=== PATIENT | male | born 1970 | race Caucasian/White ===

== ENCOUNTER 2019-07-11 23:21 | Emergency (ER) | payer MEDICARE, MEDICAID ==
[~2019-07-11] VITALS: Ht 172.7 cm; Wt 52.0 kg
[~2019-07-11 23:21] MED LIST: AMIODARONE HCL 50MG/ML 3ML VIAL IV ONE; CALCIUM CHLORIDE 1GM/10ML SYR IV ONE; EPINEPHRINE 0.1MG/ML (1:10,000) 10ML SYR ONE; ETOMIDATE 2MG/ML 10ML VIAL IV ONE; SODIUM BICARBONATE 8.4% MEQ/ML 50ML VIAL IV ONE; SUCCINYLCHOLINE CHLORIDE 200MG/10ML IV ONE
[2019-07-11] MEDS ORDERED: EPINEPHRINE 0.1MG/ML (1:10,000) 10ML SYR ONE (23:35)
[2019-07-11] MEDS ORDERED: SODIUM BICARBONATE 8.4% 1 MEQ/ML 50ML SYR IV ONE (23:36)
[2019-07-11] MEDS ORDERED: PIPERACILLIN/TAZ 3.375G PREMIX 50 ML IV ONE (23:45)
[2019-07-11] MEDS ORDERED: VANCOMYCIN 1 G PREMIX 200 ML IV ONE (23:45)
[2019-07-11] MEDS ORDERED: SODIUM CHLORIDE 0.9% 1000ML BAG (SEPSIS BOLUS) IV ONE (23:45)
[2019-07-11] MEDS ORDERED: NOREPINEPHRINE 4MG/250ML PMX 250 ML IV ONE (23:48)
[2019-07-12] MEDS ORDERED: DOPAMINE 400MG/250ML PREMIX 250 ML IV ONE (00:04)
[2019-07-12 00:23] LABS: PROTHROMBIN TIME 19.9 sec (9.6-11.0)
[2019-07-12 00:34] LABS: CHLORIDE 133 mEq/L (98-107)
[2019-07-12 00:43] LABS: ETHANOL BLOOD < 10 mg/dL
[2019-07-12] MEDS ORDERED: PHENYLEPHRINE 10 MG in DEXT 5% WATER 249 ML IV STA (00:50)
[2019-07-12 00:57] LABS: HEMATOCRIT 28.3 % (42.0-52.0); HEMOGLOBIN 8.6 g/dL (14.0-18.0); MEAN CORPUSCULAR VOLUME 72.6 fL (80.0-94.0); PLATELET 141 x1000/uL (130-400); RED BLOOD CELL COUNT 3.89 mill/uL (4.7-6.1); RED CELL DISTRIBUTION WIDTH 15.9 % (11.6-14.6)
[2019-07-12] MEDS ORDERED: ACETAMINOPHEN 650MG SUPP PR ONE (01:00)
[2019-07-12] MEDS ORDERED: PHENYLEPHRINE 10 MG in DEXT 5% WATER 249 ML IV SCH (01:00)
[2019-07-12] MEDS ORDERED: SODIUM CHLORIDE 0.9% 1,000 ML IV ONE ×2 (01:00)
[2019-07-12] MEDS ORDERED: MORPHINE SULFATE 2 MG/ML CPJ (NOT FOR IM USE) IV ONE (01:26)
[2019-07-12 02:45] VITALS: BP 76/20
[2019-07-12 03:16] LABS: CLARITY URINE TURBID (CLEAR); COLOR URINE DARK YELLOW (YELLOW); KETONES URINE NEGATIVE (NEGATIVE); LEUKOCYTE ESTERASE URINE 3+ (NEGATIVE); NITRITE URINE NEGATIVE (NEGATIVE); OCCULT BLOOD URINE 3+ (NEGATIVE); PROTEIN URINE 1+ (NEGATIVE)
[2019-07-12 04:43] LABS: *BARBITURATES SCREEN URINE NEGATIVE (NEGATIVE); *BENZODIAZEPINES SCREEN URINE NEGATIVE (NEGATIVE); *COCAINE SCREEN URINE NEGATIVE (NEGATIVE)
[2019-07-12 04:44] LABS: *AMPHETAMINES SCREEN URINE NEGATIVE (NEGATIVE); CANNABINOID URINE SCREEN NEGATIVE (NEGATIVE); METHADONE URINE SCREEN NEGATIVE (NEGATIVE); OPIATES URINE SCREEN NEGATIVE (NEGATIVE); PHENCYCLIDINE URINE SCREEN NEGATIVE (NEGATIVE)
== END 2019-07-12 03:24 | disposition expired ==
LOC: ER 23:21 → EDBEDREQ 23:57 → EDBEDREQTM 23:57 → EDBEDREQSVC 23:57 → EDBEDREQ 07-12 00:37 → EDBEDREQTM 07-12 00:37 → ER 07-12 03:24 → CANBEDREQ 07-12 05:02
DX: A41.9 Sepsis, unspecified organism (principal); D64.9 Anemia, unspecified; R06.03 Acute respiratory distress; F03.90 Unspecified dementia, unspecified severity, without behavioral disturbance, psychotic disturbance, mood disturbance, and anxiety; I46.9 Cardiac arrest, cause unspecified; R64 Cachexia; E46 Unspecified protein-calorie malnutrition; I48.91 Unspecified atrial fibrillation; I95.9 Hypotension, unspecified
CPT/HCPCS: 36415; 71045; 80053; 80305; 80320; 81003; 83605; 83690; 83880; 84145; 84484; 85027; 85610; 86850; 86900; 86901; 87040; 87077; 87086; 87186; 93005; 94002; 96365; 96366; 96368; 99291; J0282; J0330; J1265; J2270; J2370; J2543; J3370; J3490; J7030; J7060; G0480